=== PATIENT | female | born 1985 | race Caucasian/White ===

== ENCOUNTER → 2021-08-12 09:23 | Outpatient (BNVA) | payer BC, SELFPAY | PROVIDERS: Family Provider Family Medicine; PCP Family Medicine; Visit Provider Nurse Practitioner Women's Health | DX: Z01.419 Encounter for gynecological examination (general) (routine) without abnormal findings (principal); N93.9 Abnormal uterine and vaginal bleeding, unspecified; F41.9 Anxiety disorder, unspecified; F32.9 Major depressive disorder, single episode, unspecified; Z79.899 Other long term (current) drug therapy | CPT/HCPCS: 84443; 85025; 88175 ==

== ENCOUNTER → 2021-09-02 07:52 | Outpatient (BNVA) | payer BC, SELFPAY | PROVIDERS: Family Provider Family Medicine; PCP Family Medicine; Visit Provider Nurse Practitioner Women's Health | DX: N93.9 Abnormal uterine and vaginal bleeding, unspecified (principal); D25.9 Leiomyoma of uterus, unspecified | CPT/HCPCS: 76830 ==

== ENCOUNTER → 2021-10-09 10:08 | Outpatient (BNVA) | payer BC, SELFPAY | PROVIDERS: Family Provider Family Medicine; PCP Family Medicine; Visit Provider Nurse Practitioner Women's Health | DX: N93.9 Abnormal uterine and vaginal bleeding, unspecified (principal) | CPT/HCPCS: 88305 ==

== ENCOUNTER → 2024-01-03 11:04 | Outpatient (BNVA) | payer OTHER, SELFPAY | PROVIDERS: Family Provider Family Medicine; PCP Clinical Nurse Specialist Adult Health; Visit Provider Clinical Nurse Specialist Adult Health | DX: H02.60 Xanthelasma of unspecified eye, unspecified eyelid (principal); Z79.899 Other long term (current) drug therapy | CPT/HCPCS: 80053; 80061; 84443; 85025 ==

== ENCOUNTER → 2024-02-21 08:41 | Outpatient (BNVA) | payer OTHER, SELFPAY | PROVIDERS: Family Provider Family Medicine; PCP Clinical Nurse Specialist Adult Health; Visit Provider Nurse Practitioner Women's Health | DX: N93.9 Abnormal uterine and vaginal bleeding, unspecified (principal); D25.1 Intramural leiomyoma of uterus; N83.201 Unspecified ovarian cyst, right side | CPT/HCPCS: 76830 ==

== ENCOUNTER 2024-03-30 09:03 | Emergency (ER) | payer OTHER, SELFPAY ==
[2024-03-30 09:04] VITALS: BP 147/98; PULSE 83; RESP 17; TEMP 36.7; O2SAT 94; BMI 35.5
[2024-03-30 09:24] VITALS: BP 147/98; PULSE 71; O2SAT 93
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
--- NOTE | 2024-03-30 10:07 | XR_ITS ---
WS: [id number] XR chest 1V portable [id number] REASON FOR EXAM: dyspnea/cough FINDINGS: Normal heart and mediastinum. Calcified granulomas disease in both hemithoraces. No acute pulmonary parenchymal or pleural disease noted. Bony thorax intact without significant focal abnormality. XR/XR chest 1V portable [id number] IMPRESSION: No acute chest abnormality.
[2024-03-30 10:20] VITALS: BP 147/98; PULSE 65; O2SAT 98
[2024-03-30 10:45] LABS: Basophils % 0.6 %; Eosinophils # 0.1 10^3/uL (0.0-0.8); Hematocrit 42.3 % (36-47); Lymphocytes # 2.1 10^3/uL (0.8-4.8); Lymphocytes % 30.6 %; Mean Corpuscular HGB Conc 34.3 g/dL (30-55); Mean Corpuscular Hemoglobin 31.4 pg (27-33); Mean Corpuscular Volume 91.6 fl (85-98); Mean Platelet Volume 9.7 fL (7.4-10.4); Monocytes # 0.4 10^3/uL (0.2-0.9); Neutrophils # 4.22 10^3/uL (1.8-7.7); Neutrophils % 60.5 %; Nucleated Red Blood Cells % 0 %; Platelet Count 324 10^3/cmm (157-399); Red Blood Count 4.62 10^6/uL (3.85-5.65); Red Cell Distribution Width 12.1 % (12.1-15.1); White Blood Count 6.97 10^3/uL (3.29-11.43)
[2024-03-30] MEDS: HYDROcodone-acetaminophen 5-325 mg Tablet 2 TAB PO (10:46)
[2024-03-30] MEDS: tetanus-dipt-pertussis 0.5 mL SDV IM (10:48)
[2024-03-30 10:56] LABS: Alanine Aminotransferase 9 U/L (0-33); Albumin Level 4.1 g/dL (3.5-5.2); Alkaline Phosphatase 70 U/L (35-105); Anion Gap 15.1 (5-19); Aspartate Amino Transferase 10 U/L (0-32); Blood Urea Nitrogen 7 mg/dL (6-20); Carbon Dioxide 22 mmol/L (22-29); Chloride 106 mmol/L (98-107); Creatinine Clr Calc Pharmacy 128.5978; Glomerular Filtration Rate 93.2 mL/min (90-130); Glucose 115 mg/dL (65-115); Osmolality Calculated 287 mOsm/kg (285-295); Potassium 4.1 mmol/L (3.5-5.1); Sodium 139 mmol/L (136-145); Total Bilirubin 0.4 mg/dL (0.15-1.2); Total Protein 7.1 g/dL (6.6-8.7)
[2024-03-30 12:25] LABS: Urine Appearance Clear (CLEAR); Urine Color Yellow (Yellow); pH Urine 7 (5-7)
[2024-03-30 12:26] LABS: Add Urine Culture? No; Add Urine Microscopic? YES; Amorphous Sediment Urine 2+ /hpf; Bacteria Urine TRACE /hpf; Bilirubin Urine Neg (Negative); Blood Urine 3+ (Negative); Glucose Urine UA Norm (Normal); Ketones Urine Negative (Negative); Leukocyte Esterase Urine Negative (Negative); Mucus Urine 3+ /hpf; Nitrate Urine Negative (Negative); Protein Urine Trace (Negative); RBC Urine 0-4 /hpf (0-2); Urobilinogen Urine Norm (Negative); WBC Urine 0-4 /hpf (0-5)
[2024-03-30 13:33] VITALS: BP 147/98; PULSE 65; RESP 17; TEMP 36.7; O2SAT 98
== END 2024-03-30 13:35 | disposition home or self-care (01) ==
PROVIDERS: Emergency Provider Family Medicine; PCP Family Medicine
DX: S01.01XA Laceration without foreign body of scalp, initial encounter (principal); V89.2XXA Person injured in unspecified motor-vehicle accident, traffic, initial encounter; Z23 Encounter for immunization
CPT/HCPCS: 12002; 70450; 71045; 72125; 80053; 81001; 85025; 90471; 90715; 99284

== ENCOUNTER 2024-07-10 14:11 | Observation (INO) | payer OTHER, SELFPAY ==
[2024-07-03 08:28] LABS: Basophils % 0.4 %; Eosinophils # 0.2 10^3/uL (0.0-0.8); Eosinophils % 2.2 %; Hematocrit 42.1 % (36-47); Lymphocytes # 1.6 10^3/uL (0.8-4.8); Lymphocytes % 21.4 %; Mean Corpuscular HGB Conc 34.2 g/dL (30-55); Mean Corpuscular Hemoglobin 31.5 pg (27-33); Mean Corpuscular Volume 92.1 fl (85-98); Mean Platelet Volume 8.9 fL (7.4-10.4); Monocytes # 0.4 10^3/uL (0.2-0.9); Neutrophils # 5.12 10^3/uL (1.8-7.7); Neutrophils % 69.7 %; Nucleated Red Blood Cells % 0 %; Platelet Count 291 10^3/cmm (157-399); Red Blood Count 4.57 10^6/uL (3.85-5.65); Red Cell Distribution Width 12.5 % (12.1-15.1); White Blood Count 7.34 10^3/uL (3.29-11.43)
[2024-07-03 08:40] LABS: Alanine Aminotransferase 9 U/L (0-33); Alkaline Phosphatase 67 U/L (35-105); Anion Gap 15.2 (5-19); Aspartate Amino Transferase 15 U/L (0-32); Blood Urea Nitrogen 8 mg/dL (6-20); Calcium 8.4 mg/dL (8.5-10.5); Carbon Dioxide 21 mmol/L (22-29); Chloride 108 mmol/L (98-107); Globulin 2.6 g/dL (1.3-4.6); Glomerular Filtration Rate 111.3 mL/min (90-130); Glucose 105 mg/dL (65-115); Osmolality Calculated 289 mOsm/kg (285-295); Potassium 4.2 mmol/L (3.5-5.1); Sodium 140 mmol/L (136-145); Total Bilirubin 0.3 mg/dL (0.15-1.2); Total Protein 6.6 g/dL (6.6-8.7)
--- NOTE | 2024-07-03 08:53 | ANES.PREANE2 ---
Pre-Anesthetic Assessment Height/Weight: Height 1.68 m Preop Diagnosis: abnormal uterine bleeding, uterine fibroids Operation Date: 07/10/24 10:20 Proposed Procedures p Total Vaginal Hysterectomy 67775, N92.0 ,N94.6, D25.9(Not Applicable) - Christopher Slaughter MD Familial anesthetic complications: none Was Beta Thierry taken within 24 hours: Yes Was Clonidine taken within 24 hours: N/A Social Tobacco (tobacco and sudhir) Exam alert, oriented x 3 and regular rate & rhythm Airway Submandibular: within normal limits Cervical ROM: within normal limits Mallampati: Class II Dentition: chipped Pulmonary Chronic Obstructive Pulmonary Disease GI Gastroesophageal Reflux Disease Neuropsych Anxiety and Depression Anesthetic Plan ASA status: 3 Anesthesia: General Medications/Allergies Home Medications Medication Instructions Recorded Confirmed Last Taken Type lactobacillus combination no.4 3 3,000 mmu cells PO DAILY 08/12/21 07/03/24 06/19/24 History billion cell capsule (Probiotic) omeprazole 10 mg capsule,delayed 10 mg PO DAILY PRN Heartburn 09/16/21 07/03/24 Unknown History release wheat dextrin 3 gram/3.5 gram oral 1 packet PO DAILY PRN Constipation 09/16/21 07/03/24 03/30/24 History powder (Best Fiber) norethindrone acetate 5 mg tablet 5 mg PO DAILY #90 tabs 02/09/24 07/03/24 07/02/24 Rx propranolol 10 mg tablet 10 mg PO DAILY PRN anxiety/panic 03/07/24 07/03/24 06/30/24 Rx attacks #30 tabs buspirone 30 mg tablet 30 mg PO QAM #30 tabs 06/20/24 07/03/24 07/02/24 Rx fluoxetine 40 mg capsule (Prozac) 40 mg PO QAM #30 caps 06/20/24 07/03/24 07/02/24 Rx naproxen 500 mg tablet,delayed 500 mg PO Q12H PRN Pain, Mild 07/03/24 07/03/24 06/19/24 History release (EC-Naproxen) Allergies Allergy/AdvReac Type Severity Reaction Status Date / Time medical tape Allergy Intermediate rash and Uncoded 07/02/24 08:44 swelling [facility] Anesthesia Medical History Chronic post-traumatic stress disorder Nicotine dependence, cigarettes, uncomplicated Major depressive disorder, recurrent severe without psychotic features Generalized anxiety disorder with panic attacks Uterine fibroid (~09/2021) 1.9 cm with the largest dimension GERD (gastroesophageal reflux disease) Psychiatric care Surgical History H/O tubal ligation (~2010) Hx of tonsillectomy as a child Family History Sister Diabetes Type 1 Mother Diabetes Hypertension Denies family history of Colon cancer Ovarian cancer Heart disease Hypercholesteremia Breast cancer Uterine cancer Thyroid disease Stroke Social History Smoking and tobacco/nicotine status: never used tobacco/nicotine Data Anesthesia 07/03/24 08:16 07/03/24 08:16 Short CBC 07/03/24 Range/Units 08:16 WBC 7.34 (3.29-11.43) 10^3/uL Hgb 14.40 (11.27-16.99) g/dL Hct 42.1 (36-47) % MCV 92.1 (85-98) fl Plt Count 291 (157-399) 10^3/cmm Neut % (Auto) 69.7 % Neut # (Auto) 5.12 (1.8-7.7) 10^3/uL BMP 07/03/24 08:16 Sodium 140 Potassium 4.2 BUN 8 Creatinine 0.6 Glucose 105 Liver Function 07/03/24 Range/Units 08:16 Total Bilirubin 0.3 (0.15-1.2) mg/dL AST 15 (0-32) U/L ALT 9 (0-33) U/L Alkaline Phosphatase 67 (35-105) U/L Albumin 4.0 (3.5-5.2) g/dL Cardiac Studies: No Data to Display
[2024-07-03 09:20] LABS: Charge for UA Resulting for Rev
[2024-07-03 09:56] LABS: Bilirubin Urine Negative (Negative); Blood Urine 3+ (Negative); Glucose Urine UA Negative (Normal); Ketones Urine Negative (Negative); Leukocyte Esterase Urine Negative (Negative); Nitrate Urine Negative (Negative); Protein Urine Trace (Negative); Specific Gravity, Urine 1.019 (1.005-1.030); Urine Appearance Clear (CLEAR); Urine Color Yellow (Yellow)
[2024-07-03 10:00] LABS: Bacteria Urine Trace /hpf; Squamous Epithelial Cell Urine 0-5 /hpf (0-5); WBC Urine 0-5 /hpf (0-5)
[2024-07-03 10:05] LABS: Add Urine Culture? Yes
[2024-07-10] VITALS (15 sets, daily range): BP systolic 110–143; BP diastolic 71–89; PULSE 52–87; RESP 11–18; TEMP 36.1–36.7; O2SAT 90–98; BMI 35.5
--- NOTE | 2024-07-10 11:45 | P.ANESUD_ITS ---
Pre-Anesthetic Update Pre-Anesthetic Assessment: Date of Surgery/Procedure: 07/10/24 Preop Jaylene gnosis: abnormal uterine bleeding, uterine fibroids Proposed Procedure: Operation Date: 07/10/24 13:05 Proposed Procedures p Total Vaginal Hysterectomy 44206, N92.0 ,N94.6, D25.9(Not Applicable) - Christopher Slaughter MD Any changes to Pre-Anesthetic Assessment?: No Last Intake: > 8 hrs Vitals: Pulse Rhythm Regular 07/10/24 11:09 Pulse Strength 3+ Normal 07/10/24 11:09 Oxygen Delivery Me thod Room Air 07/10/24 11:09 Exam: Pre-Anes Outpt Exam: alert, oriented x 3, clear to auscultation bilaterally and regular rate & rhythm Cardiac Studies: No Data to Display
[2024-07-10] MEDS: scopolamine 1.5 Patch 1 PATCH TRANSDERMA (12:06)
[2024-07-10] MEDS: sodium chloride 0.9% 500 ML IV ×2 (12:06→20:14)
[2024-07-10] MEDS: ceFAZolin 2,000 mg SDV 2000 MG IVP (12:06)
--- NOTE | 2024-07-10 12:22 | W.PM.OPSUD ---
Surgery/Procedure H&P Update DATE OF PROCEDURE: July 10, 2024 DATE H&P PERFORMED: 07/02/24 H&P UPDATE INFORMATION: I have reviewed H&P completed within last 30 days, I have examined patient prior to procedure and No changes to prior documentation PREOP DIAGNOSIS: abnormal uterine bleeding, uterine fibroids PLANNED PROCEDURE: Operation Date: 07/10/24 13:05 Proposed Procedures p Total Vaginal Hysterectomy 16352, N92.0 ,N94.6, D25.9(Not Applicable) - Christopher Slaughter MD
[2024-07-10] MEDS: sodium chloride 0.9% 1,000 ML 30 ML IV (12:37)
[2024-07-10] MEDS: lidocaine-epi 2% PF 1:200,000 20 mL SDV INJECTION (13:41)
--- NOTE | 2024-07-10 14:13 | PM.OP ---
Operative Report Date of procedure: July 10, 2024 Pre-op diagnosis: Abnormal uterine bleeding Uterine fibroid Post-op diagnosis: same Procedure done: Total vaginal hysterectomy Right cystectomy Surgeon: Christopher Slaughter MD Estimated blood loss (mL): 60 IV fluids (mL): 1,300 Urine output (mL): 100 Complications: None Findings: Enlarged fibroid uterus. Right ovarian cyst. Procedure: After informed consent and risks, benefits, indications and alternatives reviewed with the patient was taken to the operating room. The patient was placed in dorsal lithotomy position prepped, and draped in the usual sterile fashion. The pre-procedure timeout verifying the correct patient, procedure, site and side, could not requirements was performed and acknowledge by the OR team. A Whittaker catheter was placed. A Bookwalter vaginal retractor was placed into the vagina in usual manner visualize the cervix. Cervix was grasped with a single tooth tenaculum and circumferentially infiltrated with 2% lidocaine with epinephrine. Then cervix was circumferentially incised with bovie and the bladder was dissected off the pubovesical cervical fascia anteriorly with a sponge stick and Metzenbaum scissors. The anterior peritoneal reflection was identified and the anterior cul-de-sac was entered sharply with Metzenbaum scissors. The same procedure was performed posteriorly and a posterior colpotomy was made through the posterior cul-de-sac space without difficulty and the posterior blade of the Bookwalter vaginal retractor was advanced posteriorly into the cul-de-sac. At this time, the left and right uterosacral ligaments were isolated and ligated with 0 Vicryl. The LigaSure device was placed over the uterosacral ligaments on either side and was then used in a serial fashion up through the cardinal ligaments bilaterally cross-clamped, cut, and sealed with the LigaSure device. Finally, the uterine arteries were cross-clamped, cut, sealed and ligated with the LigaSure device. Hemostasis was assured. The broad ligaments were then serially clamped, sealed and cut with the LigaSure device on both sides. Excellent hemostasis was visualized. Both cornua were clamped, sealed and cut with the LigaSure device. Then the pedicles were then suture ligated with excellent hemostasis. The uterus was excised and submitted for pathologic evaluation. A right ovarian cyst of approximately 5 cm was noted and a right cystectomy was performed without complication. Good hemostasis was assure on both sides. The peritoneum was then closed in a pursestring fashion with 0 Vicryl suture. Bludigo IV was given. The vaginal cuff angles were closed with [id number] #0 Vicryl suture on both sides and transfixed with the ipsilateral cardinal and uterosacral ligaments. The remainder of the vaginal cuff was closed with #0 Vicryl in a running locked fashion. At this time, instruments were removed from the vagina at hemostasis assured. The Whittaker catheter was then noted with clear екатерина urine. The patient was taken out of dorsal lithotomy position and awakened from the general anesthesia. The patient tolerated the procedure well and was taken to the PACU recovery room in a stable condition. Sponge, lap, needle and instruments counts were correct x3.
--- NOTE | 2024-07-10 14:55 | ANE.PACU2 ---
Inpatient post-anesthesia follow up: Airway intact: Yes Vital signs: Temperature 97.7 F Pulse Rate 67 Respiratory Rate 11 Blood Pressure 143/87 Pulse Oximetry 91 Oxygen Delivery Me thod Room Air Oxygen Flow Rate 8 Fraction of Inspir ed Oxygen Hydration adequate: Yes Nausea and vomiting: No Pain level: 1 Mental status: Baseline
[2024-07-10] MEDS: dextrose 5%-lactated ringers 1,000 ML 125 ML IV ×2 (15:52→23:50)
[2024-07-10] MEDS: docusate sodium 100 mg Capsule PO (18:37)
[2024-07-10] MEDS: ketorolac 30 mg/mL INJ IVP (20:14)
[2024-07-10] MEDS: simethicone 80 mg Chew PO (20:14)
[2024-07-10] MEDS: HYDROcodone-acetaminophen 5-325 mg Tablet PO (21:49)
[2024-07-11] MEDS: ketorolac 30 mg/mL INJ IVP ×2 (02:09→07:36)
[2024-07-11 04:00] VITALS: BP 115/70; PULSE 56; RESP 18; TEMP 36.8; O2SAT 99
[2024-07-11] MEDS: simethicone 80 mg Chew PO (05:04)
[2024-07-11 05:19] LABS: Hematocrit 36.6 % (36-47); Mean Corpuscular HGB Conc 33.3 g/dL (30-55); Mean Corpuscular Hemoglobin 31.4 pg (27-33); Mean Corpuscular Volume 94.3 fl (85-98); Mean Platelet Volume 9.7 fL (7.4-10.4); Platelet Count 285 10^3/cmm (157-399); Red Blood Count 3.88 10^6/uL (3.85-5.65); Red Cell Distribution Width 12.5 % (12.1-15.1); White Blood Count 14.36 10^3/uL (3.29-11.43)
[2024-07-11] MEDS: fluoxetine 20 mg Capsule 40 MG PO (07:36)
[2024-07-11] MEDS: BuSPIRONE 10 mg Tablet 30 MG PO (07:36)
--- NOTE | 2024-07-11 08:50 | P.DS_ITS ---
Discharge Providers BAD CLOTH CHECKER Date of Admission: 07/10/24 14:11 Date of Discharge: 07/11/24 Attending Provider at Admission: Christopher Slaughter MD Attending Provider at Discharge: Christopher Slaughter MD Primary Care Provider: Esdras Jewell Reason for Visit Reason for Visit: N92.0 Hospital Course Hospital Course Mrs. Ji 38-year-old female G4, P3 with a history of uterine fibroid and abnormal uterine bleeding unresponsive to medical management. Admitted for a total vaginal hysterectomy. The total vaginal hysterectomy was performed without complication. Overnight observation was uneventful. Pain well under control. She is afebrile and hemodynamically stable postoperative day 1. Tolerating diet well. Ambulating without difficulty. Physical Exam Narrative: GA: Alert and oriented ?3. HEENT: WNL. Heart: Regular rate and rhythm. Lungs: Clear to auscultation bilaterally. Abdomen: Bowel sounds present, nontender. 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 Extremities: No edema, no cyanosis, no calves pain. Urinary Catheter Management: Whittaker: Cath Placed During This Visit: yes, but has since been removed by the nurse Reason for Continuing Indwelling Catheter: Decision to DC Catheter Urinary Catheter Date of Insertion: 07/10/24 Urinary Catheter Time of Insertion: 13:18 Date Urinary Catheter Removed: 07/11/24 Time Urinary Catheter Discontinued: 05:11 History History History 4 Term 3 0 Miscarriages/Ectopic 1 Living Children 3 Discharge Data Studies Completed and Pending Pending at discharge Category Date Time Status Pathology: Surgical [PTH] Routine Pth 07/10/24 13:58 Received Laboratory Results WBC 14.36 10^3/uL (3.29-11.43) H 07/11/24 05:05 RBC 3.88 10^6/uL (3.85-5.65) 07/11/24 05:05 Hgb 12.20 g/dL (11.27-16.99) 07/11/24 05:05 Hct 36.6 % (36-47) 07/11/24 05:05 MCV 94.3 fl (85-98) 07/11/24 05:05 MCH 31.4 pg (27-33) 07/11/24 05:05 MCHC 33.3 g/dL (30-55) 07/11/24 05:05 RDW 12.5 % (12.1-15.1) 07/11/24 05:05 Plt Count 285 10^3/cmm (157-399) 07/11/24 05:05 MPV 9.7 fL (7.4-10.4) 07/11/24 05:05 Neut % (Auto) 69.7 % 07/03/24 08:16 Lymph % (Auto) 21.4 % 07/03/24 08:16 [place] % (Auto) 6.0 % 07/03/24 08:16 Eos % (Auto) 2.2 % 07/03/24 08:16 Baso % (Auto) 0.4 % 07/03/24 08:16 Neut # (Auto) 5.12 10^3/uL (1.8-7.7) 07/03/24 08:16 Lymph # (Auto) 1.6 10^3/uL (0.8-4.8) 07/03/24 08:16 [place] # (Auto) 0.4 10^3/uL (0.2-0.9) 07/03/24 08:16 Eos # (Auto) 0.2 10^3/uL (0.0-0.8) 07/03/24 08:16 Baso # (Auto) 0.0 10^3/uL (0.0-0.1) 07/03/24 08:16 Nucleated RBC % (auto) 0 % 07/03/24 08:16 Nucleated RBCs # 0.0 /100WBC 07/03/24 08:16 Sodium 140 mmol/L (136-145) 07/03/24 08:16 Potassium 4.2 mmol/L (3.5-5.1) 07/03/24 08:16 Chloride 108 mmol/L (98-107) H 07/03/24 08:16 Carbon Dioxide 21 mmol/L (22-29) L 07/03/24 08:16 Anion Gap 15.2 (5-19) 07/03/24 08:16 BUN 8 mg/dL (6-20) 07/03/24 08:16 Creatinine 0.6 mg/dL (0.5-0.9) 07/03/24 08:16 GFR Calculation 111.3 mL/min (90-130) 07/03/24 08:16 Glucose 105 mg/dL (65-115) 07/03/24 08:16 Calculated Osmolality 289 mOsm/kg (285-295) 07/03/24 08:16 Calcium 8.4 mg/dL (8.5-10.5) L 07/03/24 08:16 Total Bilirubin 0.3 mg/dL (0.15-1.2) 07/03/24 08:16 AST 15 U/L (0-32) 07/03/24 08:16 ALT 9 U/L (0-33) 07/03/24 08:16 Alkaline Phosphatase 67 U/L (35-105) 07/03/24 08:16 Total Protein 6.6 g/dL (6.6-8.7) 07/03/24 08:16 Albumin 4.0 g/dL (3.5-5.2) 07/03/24 08:16 Globulin 2.6 g/dL (1.3-4.6) 07/03/24 08:16 Urine Color Yellow (Yellow) 07/03/24 08:51 Urine Appearance Clear (CLEAR) 07/03/24 08:51 Urine pH 6.0 (5-7) 07/03/24 08:51 Ur Specific [place] 1.019 (1.005-1.030) 07/03/24 08:51 Urine Protein Trace (Negative) A 07/03/24 08:51 Urine Glucose (UA) Negative (Normal) 07/03/24 08:51 Urine Ketones Negative (Negative) 07/03/24 08:51 Urine Blood 3+ (Negative) A 07/03/24 08:51 Urine Nitrate Negative (Negative) 07/03/24 08:51 Urine Bilirubin Negative (Negative) 07/03/24 08:51 Urine Urobilinogen 1.0 mg/dL (Negative) 07/03/24 08:51 Ur Leukocyte Esterase Negative (Negative) 07/03/24 08:51 Urine RBC 11-20 /hpf (0-2) H 07/03/24 08:51 Urine WBC 0-5 /hpf (0-5) 07/03/24 08:51 Ur Squamous Epith Cells 0-5 /hpf (0-5) 07/03/24 08:51 Amorphous Sediment Not Reportable 07/03/24 08:51 Urine Bacteria Trace /hpf (NONE) 07/03/24 08:51 Hyaline Casts 0.40 /lpf 07/03/24 08:51 Blood Type A Positive 07/10/24 11:20 Rho(D) Type Rh positive 07/10/24 11:20 Antibody Screen Negative 07/10/24 11:20 Vitals Last Vital Signs Temp 98.2 F 07/11/24 04:00 Pulse 56 L 07/11/24 04:00 Resp 18 07/11/24 04:00 BP 115/70 07/11/24 04:00 Pulse Ox 99 07/11/24 04:00 O2 Del Method Room Air 07/11/24 04:00 O2 Flow Rate 8 07/10/24 14:27 Results Labs OB ([facility]): Blood Type A Positive 07/10/24 Antibody Screen Negative 07/10/24 Hct 36.6 % (36-47) 07/11/24 Hgb 12.20 g/dL (11.27-16.99) 07/11/24 Rho(D) Type Rh positive 07/10/24 Plt Count 285 10^3/cmm (157-399) 07/11/24 TSH 0.54 uIU/mL (0.27-4.20) 01/03/24 Micro Urine Specimen 07/03/24 Pap Smear Interpret See note 08/12/21 Discharge Plan Discharge Patient Disposition: Home Condition: Stable Prescriptions: New hydrocodone-acetaminophen 5-325 mg tablet 1 tab PO Q4H PRN (Reason: pain) Qty: 20 0RF acetaminophen 325 mg capsule 325 mg PO Q4H PRN (Reason: fever or postoperative pain) Qty: 60 0RF ibuprofen 800 mg tablet 800 mg PO TID PRN (Reason: pain) Qty: 60 0RF Continued Probiotic 3 billion cell capsule 3,000 mmu cells PO DAILY Rx Instructions: administer with a meal Best Fiber 3 gram/3.5 gram powder 1 packet PO DAILY PRN (Reason: Constipation) Rx Instructions: mix into at least 4 oz water or juice before administering omeprazole 10 mg capsule,delayed release(DR/EC) 10 mg PO DAILY PRN (Reason: Heartburn) propranolol 10 mg tablet 10 mg PO DAILY PRN (Reason: anxiety/panic attacks) Qty: 30 3RF norethindrone acetate 5 mg tablet 5 mg PO DAILY Qty: 90 5RF fluoxetine [Prozac] 40 mg capsule 40 mg PO QAM Qty: 30 3RF Rx Instructions: Take one capsule every morning buspirone 30 mg tablet 30 mg PO QAM Qty: 30 3RF Rx Instructions: Take one tablet every morning EC-Naproxen 500 mg tablet,delayed release (DR/EC) 500 mg PO Q12H PRN (Reason: Pain, Mild) Discharge Orders: Discharge Order (Routine); Ordered 07/11/24 Ordered By: Christopher Slaughter Referrals: Christopher Slaughter MD [Physician] - 2 weeks Discharge Diet: Usual diet Discharge Activity: Limit activity as instructed Patient Instructions: Acute Wound Care (DC), Vaginal Hysterectomy (GEN), Opioid Safety, Post Anesthesia Care Activity Restrictions/Additional Instructions: 1. Please call [facility] Women s [facility] clinic on next working day to make your post-operative appointment in 2 weeks. 2. Please stay home until you come back to the clinic on first post- hospatilization check up. 3. Please follow instructions on your medications CAREFULLY. 4. If you have abdominal incision, do not cover it unless dressing is necessary because of drainage. OK to shower, but avoid bath. Leave steri-strips until they fall off. If they are still on one week after surgery, you may remove them. 5. If you had vaginal surgery or vaginal repair, Dr. Salughter may instruct you to take SITZ bath. 6. Yellow, blood tinged odorous vaginal discharge is usually normal after hysterectomy or vaginal surgeries. 7. No SEXUAL INTERCOURSE, tampons, or douches until you are completely released from the post-operative care. 8. Avoid constipation by eating right and maybe using some Metamucil or Milk of Magnesia. 9. All prescription refills are given during the working hours. Please do no wait till it runs out. Call the clinic at [phone] before your medication runs out. The clinic will get in touch with your doctor to prescribe medications if necessary. 10. Please remain within 40 mile radius from our hospital because emergencies do happen now and then during the post-operative period. 11. If you have stairs at home, take one step at a time slowly and minimize the number of trips. It helps to stay in one floor for the next few days. No lifting except what you can lift by one hand until you are released from the post-operative care. 12. Driving is discouraged until you are well healed. It may be 3-4 weeks before you feel strong enough to drive. You should be able to turn and look through the rear window without pain and you should be able to push the brake pedal very hard without pain before you drive. No fast rules, but SAFETY should be your primary concern. DO NOT drive if you are on sedating medications such as narcotics. 13. Call the clinic (during working hours) to make urgent appointment or go to the Emergency room, if any of the following occurs: i. Vaginal bleeding becomes heavy, more than a period. ii. Incision becomes red and sore, or drains pus. iii. Your TEMPERATURE is over 100.4F or you have chill. iv. IV site becomes red and swollen (a little ``knot?? is usually OK) v. Persistent nausea and vomiting vi. Persistent constipation or diarrhea vii. Rash or allergic reaction to medications. Discharge Attestations BAD CLOTH CHECKER Time Spent in Discharge Care*: greater than 30 min Coding Level of Care Code Acute Code for Chg Mumtaz
[2024-07-11] MEDS: docusate sodium 100 mg Capsule PO (10:00)
[2024-07-11 10:11] VITALS: BP 124/72; PULSE 58; RESP 16; TEMP 36.9; O2SAT 96
[2024-07-11 10:17] VITALS: BP 124/72; PULSE 58; RESP 16; TEMP 36.9; O2SAT 96
== END 2024-07-11 10:17 | disposition home or self-care (01) ==
LOC: OBGYN 14:11
PROVIDERS: Admitting Provider Obstetrics & Gynecology; PCP Clinical Nurse Specialist Adult Health; Visit Provider Obstetrics & Gynecology
PROC: (CPT 58262; principal; 2024-07-10 12:55)
PROC: (CPT 58662; 2024-07-10 12:55)
DX: N93.9 Abnormal uterine and vaginal bleeding, unspecified (principal); N72 Inflammatory disease of cervix uteri; K21.9 Gastro-esophageal reflux disease without esophagitis
CPT/HCPCS: 58262; 36415; 80053; 81003; 81015; 85025; 85027; 86850; 86900; 87086; 88307; 96374; 96376; A4216; G0378; J0690; J1100; J1170; J1885; J2250; J2405; J2704; J3010; J3490; J7030; J7040; J7121

== ENCOUNTER 2024-07-19 11:19 | Emergency (ER) | payer OTHER, SELFPAY ==
[2024-07-19 11:39] VITALS: BP 144/87; PULSE 56; RESP 16; TEMP 36.5; O2SAT 98; BMI 34.5
--- NOTE | 2024-07-19 12:00 | CT_ITS ---
WS: [id number] CT ABDOMEN AND PELVIS WITH CONTRAST HISTORY: Abdominal pain TECHNIQUE: Imaging performed of the abdomen and pelvis with IV contrast. Single phase imaging of the abdomen. Coronal and sagittal reformats are submitted. All CT scans at [facility] use at [address] one of these dose optimization techniques: automated exposure control; mA and/or kV adjustment per patient size (includes targeted exams where dose is matched to clinical indication); or iterative re construction. IV CONTRAST: Omnipaque 350; 100 mL IV. Oral contrast: No DLP: 998.25 mGy.cm COMPARISON: 05/13/2019 Lower thorax: Lung bases are clear. Heart is normal size. No hiatal hernia. Liver/biliary system: Normal size with no intrahepatic dilatation. Gallbladder: Normal. No gallstones or wall thickening. No pericholecystic fluid. Pancreas: Normal size pancreas and pancreatic duct. No adjacent inflammation. Spleen: Spleen is normal size. Tiny low-attenuation focus measuring 8 mm in the spleen is new. This m ay represent a cyst tiny hemangioma or cyst. Adrenal glands: Normal. Right kidney: Normal. Left kidney: Normal. Aorta: Mild atherosclerosis with no aneurysm. Normally opacified mesenteric arteries. Mild atheroscle rosis of the mesenteric arteries. Lymphadenopathy: None. Free fluid: None. GI tract: Normally distended stomach. No small bowel obstruction. Normal appendix. There are extensiv e diverticula throughout the colon. Diverticular burden becomes more significant in the descending an d sigmoid colon. Colon is very tortuous. No definite acute inflammatory changes are identified althou gh there are numerous diverticula present. Abdominal wall: Unremarkable abdominal wall. No hernia. Pelvis: No free fluid or adenopathy within the pelvis. Prior hysterectomy. Minimally distended bladde r. Bones: Unremarkable. CT/CT abdomen pelvis w con* [id number] IMPRESSION: 1. Advanced distal colonic diverticulosis. Numerous diverticula have been pres ent since 2019 with mild increase in burden. No evidence for acute diverticulit is at this time. 2. There is no free air or free fluid. 3. Negative gallbladder. 4. No renal obstruction.
--- NOTE | 2024-07-19 12:09 | W.ED.FEMALGU ---
HPI - Female Genitourinary General: Chief complaint: Urogenital-Female Stated complaint: Pelvic pain Time Seen by Provider: 07/19/24 12:00 History of Present Illness: 38-year-old female who had a hysterectomy a few days back he was having worsening left-sided pain. She says it feels like butterflies at times in her left side and then she has severe pain. She had a good bowel movement today. No dysuria. No fevers. She has some nausea but no vomiting. Pain goes down into her groin she says. Her pain medication is not working she says Related Data Home Medications Medication Instructions Recorded Confirmed lactobacillus combination no.4 3 3,000 mmu cells PO DAILY 08/12/21 07/19/24 billion cell capsule (Probiotic) omeprazole 10 mg capsule,delayed 10 mg PO DAILY PRN Heartburn 09/16/21 07/19/24 release wheat dextrin 3 gram/3.5 gram oral 1 packet PO DAILY PRN Constipation 09/16/21 07/19/24 powder (Best Fiber) acetaminophen 325 mg tablet 325 mg PO Q4H PRN Fever Or Pain 07/19/24 07/19/24 tretinoin 0.1 % topical cream 1 applic topical QPM 07/19/24 07/19/24 Previous Rx's Medication Instructions Recorded propranolol 10 mg tablet 10 mg PO DAILY PRN anxiety/panic 03/07/24 attacks #30 tabs buspirone 30 mg tablet 30 mg PO QAM #30 tabs 06/20/24 fluoxetine 40 mg capsule (Prozac) 40 mg PO QAM #30 caps 06/20/24 ibuprofen 800 mg tablet 800 mg PO TID PRN pain #60 tabs 07/11/24 cefdinir 300 mg capsule 300 mg PO BID 5 days #10 caps 07/19/24 diclofenac sodium 50 mg 50 mg PO BID PRN pain #14 tabs 07/19/24 tablet,delayed release oxycodone 5 mg tablet 5 mg PO Q8H PRN pain #20 tabs 07/19/24 polyethylene glycol 3350 17 17 g PO DAILY #510 grams 07/19/24 gram/dose oral powder (Miralax) Allergies Allergy/AdvReac Type Severity Reaction Status Date / Time medical tape Allergy Intermediate rash and Uncoded 07/02/24 08:44 swelling Review of Systems Narrative: Constitutional symptoms: Negative except as documented in HPI. Skin symptoms: Negative except as documented in HPI. Eye symptoms: Negative except as documented in HPI. ENMT symptoms: Negative except as documented in HPI. Respiratory symptoms: Negative except as documented in HPI. Cardiovascular symptoms: Negative except as documented in HPI. Gastrointestinal symptoms: Negative except as documented in HPI. Genitourinary symptoms: Negative except as documented in HPI. Musculoskeletal symptoms: Negative except as documented in HPI. Neurologic symptoms: Negative except as documented in HPI. Psychiatric symptoms: Negative except as documented in HPI. Endocrine symptoms: Negative except as documented in HPI. PFSH ED PFSH: Medical History Chronic post-traumatic stress disorder Nicotine dependence, cigarettes, uncomplicated Major depressive disorder, recurrent severe without psychotic features Generalized anxiety disorder with panic attacks Uterine fibroid (~09/2021) 1.9 cm with the largest dimension GERD (gastroesophageal reflux disease) Psychiatric care Surgical History H/O tubal ligation (~2010) Hx of tonsillectomy as a child Family History Sister Diabetes Type 1 Mother Diabetes Hypertension Denies family history of Colon cancer Ovarian cancer Heart disease Hypercholesteremia Breast cancer Uterine cancer Thyroid disease Stroke Social History Smoking and tobacco/nicotine status: never used tobacco/nicotine Physical Exam Narrative: EXAM NARRATIVE: General: Alert, no acute distress. Skin: Warm, dry. Head: Normocephalic, atraumatic. Neck: Supple, trachea midline. Eye: Extraocular movements are intact. Ears, nose, mouth and throat: mucosa moist. Cardiovascular: Regular, Normal peripheral perfusion. Respiratory: Lungs are clear to auscultation, respirations are non-labored, breath sounds are equal, Symmetrical chest wall expansion. Gastrointestinal: Soft, left lateral lower abdominal pain, Non distended Musculoskeletal: Normal ROM, no deformity. Neurological: Alert and oriented, No focal neurological deficit observed. Psychiatric: Cooperative, appropriate mood & affect. Course Vital Signs: Vital signs: Vital Signs Temperature 97.7 F 07/19/24 11:39 Pulse Rate 56 L 08/22/24 11:39 Respiratory Rate 20 H 07/19/24 12:41 Blood Pressure 144/87 07/19/24 11:39 Pulse Oximetry 97 07/19/24 12:41 Oxygen Delivery Me thod Room Air 07/19/24 11:39 MDM - Female Medical Decision Making Medical decision making: Differential diagnosis including but not limited to and based on the above HPI, review of systems and physical exam: In this postsurgical patient with left lateral abdominal pain and groin pain but have concern for postop changes so CT was ordered. Also could have concern for diverticulitis. Constipation. Urinary tract infection. Kidney stones. Orders placed to evaluate differential diagnosis based on the above differential, HPI and physical exam Lab Review: Laboratory results were reviewed and interpreted by myself the emergency room physician. No leukocytosis. No anemia. No renal failure. She does have a urinary tract infection. CT of the abdomen and pelvis with contrast: She has diverticulosis with no diverticulitis. No free air or free fluid. Gallbladder is normal. No renal obstructions. Nothing to explain her pain. This was reviewed and interpreted by myself the emergency room physician. I also reviewed the radiology report. I reviewed the patient's medical record. Consultation: I spoke with Dr. Slaughter who had performed her surgery. He agrees with changing her pain medication to oxycodone and follow-up in clinic. Reexamination: Patient appears more comfortable after having pain medications. No altered mental status. No increased work of breathing. Assessment and plan: Postop abdominal pain Urinary tract infection ?2 doses of IV Dilaudid in the emergency room. IV Rocephin. - Discharged home - Discussed findings and plan with patient. Answered any questions. - All laboratory values were reviewed and interpreted personally by myself, the ER physician - All imaging was reviewed and interpreted personally by myself, the ER physician. - Evaluation and treatment of this problem were appropriate in the emergency setting Lab Data 07/19/24 12:31 07/19/24 12:31 Radiology Impressions Abdomen/Pelvis CT 07/19/24 12:00 IMPRESSION: 1. Advanced distal colonic diverticulosis. Numerous diverticula have been present since 2019 with mild increase in burden. No evidence for acute diverticulitis at this time. 2. There is no free air or free fluid. 3. Negative gallbladder. 4. No renal obstruction. Laboratory Results WBC 5.95 10^3/uL (3.29-11.43) 07/19/24 12: RBC 5.17 10^6/uL (3.85-5.65) 07/19/24 12:31 Hgb 16.00 g/dL (11.27-16.99) 07/19/24 12:31 Hct 47.3 % (36-47) H 07/19/24 12:31 MCV 91.5 fl (85-98) 07/19/24 12:31 MCH 30.9 pg (27-33) 07/19/24 12:31 MCHC 33.8 g/dL (30-55) 07/19/24 12:31 RDW 12.0 % (12.1-15.1) L 07/19/24 12:31 Plt Count 359 10^3/cmm (157-399) 07/19/24 12:31 MPV 8.9 fL (7.4-10.4) 07/19/24 12:31 Neut % (Auto) 61.0 % 07/19/24 12:31 Lymph % (Auto) 30.3 % 07/19/24 12:31 [place] % (Auto) 6.7 % 07/19/24 12:31 Eos % (Auto) 1.5 % 07/19/24 12:31 Baso % (Auto) 0.3 % 07/19/24 12: Neut # (Auto) 3.63 10^3/uL (1.8-7.7) 07/19/24 12: Lymph # (Auto) 1.8 10^3/uL (0.8-4.8) 07/19/24 12:31 [place] # (Auto) 0.4 10^3/uL (0.2-0.9) 07/19/24 12:31 Eos # (Auto) 0.1 10^3/uL (0.0-0.8) 07/19/24 12:31 Baso # (Auto) 0.0 10^3/uL (0.0-0.1) 07/19/24 12:31 Nucleated RBC % (auto) 0 % 07/19/24 12:31 Nucleated RBCs # 0.0 /100WBC 07/19/24 12:31 Sodium 137 mmol/L (136-145) 07/19/24 12:31 Potassium 4.0 mmol/L (3.5-5.1) 07/19/24 12:31 Chloride 101 mmol/L (98-107) 07/19/24 12:31 Carbon Dioxide 22 mmol/L (22-29) 07/19/24 12:31 Anion Gap 18.0 (5-19) 07/19/24 12:31 BUN 11 mg/dL (6-20) 07/19/24 12:31 Creatinine 0.6 mg/dL (0.5-0.9) 07/19/24 12:31 GFR Calculation 111.3 mL/min (90-130) 07/19/24 12:31 Glucose 96 mg/dL (65-115) 07/19/24 12:31 Calculated Osmolality 283 mOsm/kg (285-295) L 07/19/24 12:31 Lactic Acid 0.8 mmol/L (0.5-2.2) 07/19/24 12:31 Calcium 9.2 mg/dL (8.5-10.5) 07/19/24 12:31 Total Bilirubin 0.3 mg/dL (0.15-1.2) 07/19/24 12:31 AST 17 U/L (0-32) 07/19/24 12:31 ALT 24 U/L (0-33) 07/19/24 12:31 Alkaline Phosphatase 78 U/L (35-105) 07/19/24 12:31 C-Reactive Protein 3.0 mg/L (0.0-4.9) 07/19/24 12:31 Total Protein 8.4 g/dL (6.6-8.7) 07/19/24 12:31 Albumin 5.0 g/dL (3.5-5.2) 07/19/24 12:31 Globulin 3.4 g/dL (1.3-4.6) 07/19/24 12:31 Procalcitonin 0.04 ng/mL (0-0.5) 07/19/24 12:31 Urine Color Yellow (Yellow) 07/19/24 12:30 Urine Appearance Clear (CLEAR) 07/19/24 12:30 Urine pH 6.0 (5-7) 07/19/24 12:30 Ur Specific [place] 1.019 (1.005-1.030) 07/19/24 12:30 Urine Protein Negative (Negative) 07/19/24 12:30 Urine Glucose (UA) Negative (Normal) 07/19/24 12:30 Urine Ketones Negative (Negative) 07/19/24 12:30 Urine Blood Negative (Negative) 07/19/24 12:30 Urine Nitrate Negative (Negative) 07/19/24 12:30 Urine Bilirubin Negative (Negative) 07/19/24 12:30 Urine Urobilinogen 1.0 mg/dL (Negative) 07/19/24 12:30 Ur Leukocyte Esterase 2+ (Negative) A 07/19/24 12:30 Urine RBC 0-2 /hpf (0-2) 07/19/24 12:30 Urine WBC 11-20 /hpf (0-5) H 07/19/24 12:30 Ur Squamous Epith Cells 0-5 /hpf (0-5) 07/19/24 12:30 Amorphous Sediment Not Reportable 07/19/24 12:30 Urine Bacteria Trace /hpf (NONE) 07/19/24 12:30 Hyaline Casts 0.40 /lpf 07/19/24 12:30 All radiology interpretation(s) finalized by discharge Discharge Plan Discharge Patient Disposition: Home Clinical Impression: Acute postoperative abdominal pain Condition: Stable Prescriptions: New Miralax 17 gram/dose powder 17 g PO DAILY Qty: 510 0RF Rx Instructions: Take 1 scoop daily while taking pain medications. cefdinir 300 mg capsule 300 mg PO BID 5 Days Qty: 10 0RF oxycodone 5 mg tablet 5 mg PO Q8H PRN (Reason: pain) Qty: 20 0RF diclofenac sodium 50 mg tablet,delayed release (DR/EC) 50 mg PO BID PRN (Reason: pain) Qty: 14 0RF No Action Probiotic 3 billion cell capsule 3,000 mmu cells PO DAILY Rx Instructions: administer with a meal Best Fiber 3 gram/3.5 gram powder 1 packet PO DAILY PRN (Reason: Constipation) Rx Instructions: mix into at least 4 oz water or juice before administering omeprazole 10 mg capsule,delayed release(DR/EC) 10 mg PO DAILY PRN (Reason: Heartburn) propranolol 10 mg tablet 10 mg PO DAILY PRN (Reason: anxiety/panic attacks) Qty: 30 3RF fluoxetine [Prozac] 40 mg capsule 40 mg PO QAM Qty: 30 3RF buspirone 30 mg tablet 30 mg PO QAM Qty: 30 3RF ibuprofen 800 mg tablet 800 mg PO TID PRN (Reason: pain) Qty: 60 0RF tretinoin 0.1 % cream 1 applic TOPICAL QPM acetaminophen 325 mg tablet 325 mg PO Q4H PRN (Reason: Fever Or Pain) Discharge Orders: Discharge ED (Routine); Ordered 07/19/24 Ordered By: Aury Castellanos Referrals: Christopher Slaughter MD [Physician] - (Please keep scheduled appointment and if symptoms do not improve call for earlier follow-up) Esdras Jewell NP [Primary Care Provider] - Patient Instructions: Urinary Tract Infection in Women (ED), Abdominal Pain (ED) Activity Restrictions/Additional Instructions: Thank you for choosing [facility] for your healthcare needs today. Please realize this is an emergency room and that we are providing you with a medical screening exam and this may not be complete and all inclusive of all the testing and or work up that you may need to determine your ailment or severity of your illness. You have been screened and evaluated and felt safe for discharge. Health conditions do change or evolve sometimes and as such it is important that you follow up with your Primary Doctor to be re checked, 3-5 days is a general good time frame for follow up. You are always welcome to return to the ED for re assessment if your symptoms are worsening or you have new concerns Coding Level of Care Code ED Manager Contact for Coleman Pandya
[2024-07-19] MEDS: ondansetron 2 mg/ML SDV 2 mL 4 MG IVP (12:39)
[2024-07-19 12:41] VITALS: RESP 20; O2SAT 97
[2024-07-19] MEDS: HYDROmorphone 1 mg/mL INJ 1 mL IVP (12:41)
[2024-07-19 12:52] LABS: Basophils % 0.3 %; Eosinophils # 0.1 10^3/uL (0.0-0.8); Eosinophils % 1.5 %; Hematocrit 47.3 % (36-47); Lymphocytes # 1.8 10^3/uL (0.8-4.8); Lymphocytes % 30.3 %; Mean Corpuscular HGB Conc 33.8 g/dL (30-55); Mean Corpuscular Hemoglobin 30.9 pg (27-33); Mean Corpuscular Volume 91.5 fl (85-98); Mean Platelet Volume 8.9 fL (7.4-10.4); Monocytes # 0.4 10^3/uL (0.2-0.9); Monocytes % 6.7 %; Neutrophils # 3.63 10^3/uL (1.8-7.7); Nucleated Red Blood Cells % 0 %; Platelet Count 359 10^3/cmm (157-399); Red Blood Count 5.17 10^6/uL (3.85-5.65); White Blood Count 5.95 10^3/uL (3.29-11.43)
[2024-07-19] MEDS: iohexol 350 mg/mL 500 mL Btl (per mL) IV (12:55)
[2024-07-19 12:56] LABS: Bilirubin Urine Negative (Negative); Blood Urine Negative (Negative); Glucose Urine UA Negative (Normal); Ketones Urine Negative (Negative); Leukocyte Esterase Urine 2+ (Negative); Nitrate Urine Negative (Negative); Protein Urine Negative (Negative); Specific Gravity, Urine 1.019 (1.005-1.030); Urine Appearance Clear (CLEAR); Urine Color Yellow (Yellow)
[2024-07-19 12:58] LABS: Bacteria Urine Trace /hpf; RBC Urine 0-2 /hpf (0-2); Squamous Epithelial Cell Urine 0-5 /hpf (0-5)
[2024-07-19 13:10] LABS: Alanine Aminotransferase 24 U/L (0-33); Alkaline Phosphatase 78 U/L (35-105); Aspartate Amino Transferase 17 U/L (0-32); Blood Urea Nitrogen 11 mg/dL (6-20); Calcium 9.2 mg/dL (8.5-10.5); Carbon Dioxide 22 mmol/L (22-29); Chloride 101 mmol/L (98-107); Creatinine Clr Calc Pharmacy 147.8679; Globulin 3.4 g/dL (1.3-4.6); Glomerular Filtration Rate 111.3 mL/min (90-130); Glucose 96 mg/dL (65-115); Osmolality Calculated 283 mOsm/kg (285-295); Sodium 137 mmol/L (136-145); Total Bilirubin 0.3 mg/dL (0.15-1.2); Total Protein 8.4 g/dL (6.6-8.7)
[2024-07-19 13:11] LABS: Lactic Sepsis W/Reflex 0.8 mmol/L (0.5-2.2)
[2024-07-19 13:17] LABS: Procalcitonin 0.04 ng/mL (0-0.5)
[2024-07-19 14:19] VITALS: RESP 18
[2024-07-19] MEDS: oxyCODONE 5 mg IR Tab/Cap 10 MG PO (14:19)
[2024-07-19] MEDS: cefTRIAXone 1,000 mg SDV 1000 MG IVP (14:20)
[2024-07-19 14:25] VITALS: BP 115/65; PULSE 53; RESP 18; TEMP 36.5; O2SAT 97
== END 2024-07-19 14:31 | disposition home or self-care (01) ==
PROVIDERS: Emergency Provider Emergency Medicine; PCP Clinical Nurse Specialist Adult Health
DX: G89.18 Other acute postprocedural pain (principal); R10.32 Left lower quadrant pain
CPT/HCPCS: 36415; 74177; 80053; 81001; 83605; 84145; 85025; 86140; 87040; 96374; 96375; 99285; J0696; J1170; J2405; Q9967

== ENCOUNTER → 2025-04-23 13:12 | Outpatient (BNVA) | payer OTHER, SELFPAY | PROVIDERS: PCP Clinical Nurse Specialist Adult Health; Visit Provider Nurse Practitioner Psychiatric/Mental Health | DX: F33.9 Major depressive disorder, recurrent, unspecified (principal) | CPT/HCPCS: 80061; 83036 ==

== ENCOUNTER → 2025-07-31 15:32 | Outpatient (BNVA) | payer OTHER, SELFPAY ==
[2025-04-24 13:26] VITALS: BP 141/88; BMI 34.5
== END ==
PROVIDERS: PCP Clinical Nurse Specialist Adult Health; Visit Provider Nurse Practitioner Psychiatric/Mental Health
DX: Z03.89 Encounter for observation for other suspected diseases and conditions ruled out (principal)
CPT/HCPCS: 81001

== ENCOUNTER → 2025-08-22 12:58 | Outpatient (BNVA) | payer OTHER, SELFPAY ==
[2025-04-24 13:26] VITALS: BP 141/88; BMI 34.5
== END ==
PROVIDERS: PCP Family Medicine; Visit Provider Family Medicine
DX: F41.1 Generalized anxiety disorder (principal); F41.0 Panic disorder [episodic paroxysmal anxiety]; R53.83 Other fatigue
CPT/HCPCS: 80053; 82306; 82607; 83880; 84443; 85025; 86140

== ENCOUNTER 2025-09-20 09:19 | Outpatient (CLI) | payer OTHER, SELFPAY ==
[2025-04-24 13:26] VITALS: BP 141/88; BMI 34.5
--- NOTE | 2025-09-20 09:30 | MR_ITS ---
WS: [id number] MRI BRAIN WITHOUT CONTRAST HISTORY: headaches COMPARISON: None available. TECHNIQUE: Diffusion imaging, multiplanar T1, T2 and FLAIR imaging obtained. No evidence for acute infarct or hemorrhage. [place]-white matter differentiation is normal. No remote or acute infarcts are volume loss. Ventricles and extra-axial spaces are normal. No inferior displacement of cerebellar tonsils. The sella turcica and pituitary gland are unremarkable. Dural venous sinuses and [place] demonstrate no abnormality on this unenhanced studies. Paranasal sinuses: Clear. Mastoid air cells: Normal. Calvarium and scalp: Intact. MR/MR head wo con* [id number] IMPRESSION: 1. Unremarkable noncontrast MRI brain. 2. No diffusion abnormalities or signal abnormality.
== END 2025-09-20 09:20 | disposition home or self-care (01) ==
LOC: RAD 09:20
PROVIDERS: PCP Family Medicine; Visit Provider Family Medicine
DX: F41.1 Generalized anxiety disorder (principal); F41.0 Panic disorder [episodic paroxysmal anxiety]; R51.9 Headache, unspecified; R53.83 Other fatigue
CPT/HCPCS: 70551

== ENCOUNTER → 2025-09-26 15:44 | Outpatient (BNVA) | payer OTHER, SELFPAY ==
[2025-04-24 13:26] VITALS: BP 141/88; BMI 34.5
== END ==
PROVIDERS: PCP Family Medicine; Visit Provider Nurse Practitioner Psychiatric/Mental Health
DX: Z79.899 Other long term (current) drug therapy (principal)
CPT/HCPCS: 82306